=== PATIENT | male | born 1950 | race Caucasian/White ===

== ENCOUNTER 2020-12-26 12:49 | Outpatient (RCR) | payer MEDICARE, SELFPAY ==
[2020-12-01 10:23] VITALS: BMI 40.4
[2020-12-26] MEDS: COVID-19 VACC, MRNA(PFIZER)/PF 30 MCG/0.3 ML SYRINGE IM (12:56)
[2021-01-16] MEDS: COVID-19 VACC, MRNA(PFIZER)/PF 30 MCG/0.3 ML SYRINGE IM (12:46)
== END 2021-03-27 23:59 ==
LOC: IMMUN 12:49
PROVIDERS: PCP Family Medicine; Referring Provider Family Medicine; Visit Provider Family Medicine
DX: Z23 Encounter for immunization (principal)
CPT/HCPCS: 0001A; 0002A; 91300

== ENCOUNTER → 2022-05-02 | Outpatient (CLI) | payer MEDICARE, SELFPAY ==
--- NOTE | 2022-05-02 14:50 | RAD_ITS ---
STUDY: X-RAY CHEST REASON FOR EXAM: Male, 72 years old. shortness of breath TECHNIQUE: PA and lateral. COMPARISON: None. FINDINGS: LUNGS: Suboptimal due to respiratory motion especially in the lung bases. No consolidation. No pneumothorax. MEDIASTINUM: Unremarkable. CARDIAC SILHOUETTE: Not enlarged. BONES AND SOFT TISSUES: No acute abnormalities. Surgical hardware in the lumbar spine partially included. RAD/Chest PA and Lateral IMPRESSION: No definite evidence of active intrathoracic disease. Electronically Signed: Reina Madden MD at 3:32 EDT ,
== END | disposition home or self-care (01) ==
LOC: RAD 14:29
PROVIDERS: PCP Family Medicine; Referring Provider Internal Medicine Cardiovascular Disease; Visit Provider Internal Medicine Cardiovascular Disease
DX: R07.9 Chest pain, unspecified (principal); I73.9 Peripheral vascular disease, unspecified; I65.29 Occlusion and stenosis of unspecified carotid artery; E78.2 Mixed hyperlipidemia; Z95.5 Presence of coronary angioplasty implant and graft; I10 Essential (primary) hypertension; I25.10 Atherosclerotic heart disease of native coronary artery without angina pectoris
CPT/HCPCS: 71046

== ENCOUNTER → 2022-05-27 | Outpatient (CLI) | payer MEDICARE, SELFPAY ==
--- NOTE | 2022-05-27 07:12 | ECHOCS_ITS ---
Reason For Study: Dyspnea/SOB Procedure This was a 2D Doppler, Color Flow transthoracic echocardiogram. The study was technically difficult. Contrast injection was performed. Exam performed in department. Left Ventricle Normal LV size. Left ventricular systolic function is normal. The estimated ejection fraction is 70 %. Diastolic function is indeterminate. No regional wall motion abnormalities noted. Right Ventricle Normal RV size. Normal systolic function. Atria The left atrium is mildly enlarged. Normal right atrium. No doppler evidence for ASD. Mitral Valve There is no mitral annular calcification. Normal mitral valve. Mild (1+) mitral valve insufficiency. Tricuspid Valve Normal tricuspid valve. Aortic Valve Trisinus/trileaflet aortic valve. Normal aortic valve. Pulmonic Valve The pulmonic valve is not well visualized. Great Vessels Normal sized aortic root. Pericardium/Pleural No pericardial effusion. Medication Diluted definity 2ml given slow IV push to enhance endocardial definition. MMode/2D Measurements & Calculations LVIDd: 5.0 cm IVSd: 1.2 cm Ao root diam: 3.0 cm LVIDs: 3.0 cm LVPWd: 1.2 cm RVDd: 2.9 cm FS: 39.7 % LAV(MOD-bp): 59.2 ml LVAd ap4: 31.0 cm2 SV(MOD-sp4): 64.6 ml LAV(MOD-bp) Indexed: 24.1 ml/m2 LVLd ap4: 8.4 cm LAV(MOD-sp2): 48.0 ml EDV(MOD-sp4): 92.8 ml LAV(MOD-sp4): 61.3 ml EDV(sp4-el): 96.7 ml LVAs ap4: 15.8 cm2 LVLs ap4: 7.4 cm ESV(MOD-sp4): 28.2 ml ESV(sp4-el): 28.4 ml EF(MOD-sp4): 69.6 % EF(sp4-el): 70.6 % SV(sp4-el): 68.3 ml LA A4 area: 21.9 cm2 LA dimension(2D): 4.2 cm RA A4 area: 11.6 cm2 Doppler Measurements & Calculations MV E max arthur: 90.7 cm/sec Lat Peak E' Arthur: 5.6 cm/sec Med Peak E' Arthur: 4.8 cm/sec MV A max arthur: 99.8 cm/sec E/E' lat: 16.1 E/E' med: 18.9 MV E/A: 0.91 Ao V2 max: 124.7 cm/sec LV V1 max: 96.0 cm/sec PA V2 max: 87.2 cm/sec Ao max P.2 mmHg LV V1 max P.7 mmHg Ao V2 mean: 87.2 cm/sec Ao mean P.4 mmHg Ao V2 VTI: 29.5 cm ECHO/Echo Complete W/ Contrast Interpretation Summary The study was technically difficult. Contrast injection was performed. Left ventricular systolic function is normal. The estimated ejection fraction is 70 %. The left atrium is mildly enlarged. Mild (1+) mitral valve insufficiency. Diastolic function is indeterminate. Ordering Physician: Pedro Vera Referring Physician: Chantal Collins Performed By: Bonita Lieberman, ADITHYA, RVT
--- NOTE | 2022-05-27 17:40 | STRESSREP ---
Stress Test Report Date: 05-27-2022 Procedure: Pharmacologic stress nuclear imaging study Indications: Shortness of breath/dyspnea on exertion; CAD; PCI Consent: Per the patient Procedure: The patient underwent pharmacologic (Regadenoson 0.4mg ) evaluation with a peak heart rate of 73 beats per minute (49%predicted maximal heart rate) and a peak blood pressure of 162/70 mmHg. The baseline ECG demonstrated sinus rhythm; right bundle branch block. The peak pharmacologic ECG demonstrated no obvious ECG changes. There was an isolated PVC during infusion. There was no complaint of chest discomfort during pharmacologic infusion or recovery. The examination was discontinued secondary to completion of protocol. Impression: 1. Pharmacologic (Regadenoson) evaluation 2. Peak pharmacologic ECG with with no obvious ECG change. 3. There was an isolated PVC during infusion. 4. Nuclear images pending Myocardial perfusion imaging study: Technique: The patient was injected with 14.9 millicuries of technetium 99m Cardiolite and subsequently rest SPECT Cardiolite nuclear imaging was obtained in the horizontal long, vertical long, and short axis views. The patient underwent pharmacologic (Regadenoson) evaluation with a peak heart rate of 73 beats per minute (49% percent predicted maximal heart rate) and a peak blood pressure of 162/70 mmHg. The patient was injected with 44.9 millicuries of technetium 99m Cardiolite and subsequently stress SPECT Cardiolite nuclear imaging was obtained in the horizontal long, vertical long, and short axis views. A gated Cardiolite study at peak stress was obtained. Interpretation: Rest and stress SPECT Cardiolite nuclear imaging status post realignment, normalization, and attenuation correction demonstrate the appearance at rest of relative uniform tracer uptake and myocardial perfusion appearing within normal limits. Status post stress there is the appearance of an area of diminished myocardial perfusion/tracer uptake near the distal anterior/anteroapical segments. There is end systolic thickening and brightening. The gated Cardiolite study demonstrates myocardial thickening and inward wall motion. The reported LVEF is 65%. Impression: 1. Rest and stress SPECT her nuclear imaging demonstrate myocardial perfusion changes at concerning for an area of stress-induced myocardial ischemia in portions of the distal anterior/anteroapical segments. 2. The gated Cardiolite study reports an LVEF of 65%. This note was generated with [employer] software. It may contain incorrect words, spelling, and punctuation that were not noted in checking the note before signing.
== END | disposition home or self-care (01) ==
LOC: CVS 07:10
PROVIDERS: PCP Family Medicine; Referring Provider Internal Medicine Cardiovascular Disease; Visit Provider Internal Medicine Cardiovascular Disease
DX: R07.9 Chest pain, unspecified (principal); I73.9 Peripheral vascular disease, unspecified; Z95.5 Presence of coronary angioplasty implant and graft; I65.29 Occlusion and stenosis of unspecified carotid artery; E78.2 Mixed hyperlipidemia; I10 Essential (primary) hypertension; I25.10 Atherosclerotic heart disease of native coronary artery without angina pectoris
CPT/HCPCS: 78452; 93017; 93306; A9500; Q9957; A4216; C8929; J2785

== ENCOUNTER → 2022-06-05 | Outpatient (CLI) | payer MEDICARE, SELFPAY ==
--- NOTE | 2022-06-05 12:44 | CDU_ITS ---
Reason For Study: Carotid Artery Stenosis Rt. Velocities/BP Lt. Velocities/BP Prox CCA 40/8 cm/sec. Prox CCA 67/16 cm/sec. Mid CCA 38/7 cm/sec. Mid CCA 66/12 cm/sec. Dist CCA 24/5 cm/sec. Dist CCA 114/17 cm/sec. Prox ICA 151/26 cm/sec. Prox ICA 214/38 cm/sec. Mid ICA 111/18 cm/sec. Mid ICA 158/21 cm/sec. Dist ICA 73/16 cm/sec. Dist ICA 89/18 cm/sec. Rt. ICA/CCA = 3.97. Lt. ICA/CCA = 3.3. Prox ECA 90/11 cm/sec. Prox ECA 447/48 cm/sec. Rt. Vert. 90/12 cm/sec. Lt. Vert. 49/7 cm/sec. Right Extracranial There is heterogeneous, irregular atherosclerotic plaque noted in the right common carotid artery. There is heterogeneous, irregular atherosclerotic plaque noted in the right internal carotid artery. There is heterogeneous, irregular atherosclerotic plaque noted in the right external carotid artery. Antegrade flow is noted in the right vertebral artery. Left Extracranial There is heterogeneous, irregular atherosclerotic plaque noted in the left common carotid artery. There is heterogeneous, irregular atherosclerotic plaque noted in the left internal carotid artery. There is heterogeneous, irregular atherosclerotic plaque noted in the left external carotid artery. Antegrade flow is noted in the left vertebral artery. Procedure Carotid Duplex 00775. This is a Carotid Duplex examination using B-mode, color flow and specral Doppler. Exam performed in department. VL/Carotid Duplex Ultrasound Interpretation Summary Moderate (50-69%) stenosis right extracranial internal carotid. Moderate (50-69%) stenosis left extracranial internal carotid. Patent and antegrade vertebrals bilaterally. Ordering Physician: Pedro Vera Referring Physician: Chantal Collins Performed By: Bonita Lieberman, ADITHYA, RVT
== END | disposition home or self-care (01) ==
LOC: CVS 12:42
PROVIDERS: PCP Family Medicine; Referring Provider Internal Medicine Cardiovascular Disease; Visit Provider Internal Medicine Cardiovascular Disease
DX: I65.23 Occlusion and stenosis of bilateral carotid arteries (principal); I73.9 Peripheral vascular disease, unspecified; R07.9 Chest pain, unspecified; E78.2 Mixed hyperlipidemia; Z95.5 Presence of coronary angioplasty implant and graft; I10 Essential (primary) hypertension; I25.10 Atherosclerotic heart disease of native coronary artery without angina pectoris
CPT/HCPCS: 93880

== ENCOUNTER 2022-06-18 07:00 | Day surgery (SDC) | payer MEDICARE, SELFPAY ==
[2022-06-11 11:53] LABS: Hematocrit 44.9 % (40-54); Hemoglobin 15.1 g/dL (13.0-16.5); Mean Corp Hgb Conc 33.6 g/dL (32-36); Mean Corpuscular Volume 95.1 fL (80-94); Mean Platelet Vol. 10.9 fl (6.2-12.0); Platelet Count 180 K/mm3 (150-450); RBC Distribution Width CV 13.5 % (11.6-14.6); RBC Distribution Width SD 47.5 fl (35.1-43.9); Red Blood Count 4.72 M/mm3 (4.6-6.2); White Blood Count 8.2 K/mm3 (4.4-11.0)
[2022-06-11 11:58] LABS: International Normalized Ratio 0.9; Prothrombin Time (Protime)PT. 12.2 SECONDS (11.7-14.9)
[2022-06-11 12:53] LABS: Anion Gap 5 (5-15); BUN 25 mg/dL (7-18); BUN/Creat Ratio 15.7 RATIO (10-20); Calcium,Total 9.6 mg/dL (8.5-10.1); Chloride 109 mmol/L (98-107); Creatinine, Serum 1.59 mg/dL (0.70-1.30); EST Glomerular Filtration Rate 46 mL/min (>60); Est Glom Filt Rate - Afr Amer 55 mL/min (>60); Glucose 105 mg/dL (74-106); Potassium 3.9 mmol/L (3.5-5.1); Sodium Level 139 mmol/L (136-145)
--- NOTE | 2022-06-17 07:50 | HP.PCM_ITS ---
History and Physical Date of Admission: 06/18/22 [facility] [address] [place], [place] [address] OFFICE VISIT Date of Service:? 05/02/22 MR#: [id number] Acct: [id number] Name:MEG BRASHER Rep #: [id number] : 1950 Provider: Dr. Pedro Vera MD Age/Sex:? 72/M ?Location: [facility] Status: Signed with Addenda ADDENDUM by Dr. Pedro Vera MD on 05/02/22 at 1419 Addendum Addendum Details:: Addendum: ECG performed in the office: Sinus rhythm Rightward axis Right bundle branch block Possible right ventricular hypertrophy Consider pulmonary disease This note was generated using a voice recognition system and there may be incorrect words, spelling or punctuation that were not noted when reviewing the office note prior to saving. Assessment and Plan Assessment and Plan (1) Atherosclerotic heart disease of [place] coronary artery without angina pectoris: ?Status:?Acute (2) Presence of stent in coronary artery: ?Status:?Acute ?Comment: PCI/LORENA mRCA 02/2006 ;PCI/stent RCA 03/1999 (3) Mixed hyperlipidemia: ?Status:?Acute (4) Essential hypertension: ?Status:?Acute (5) Peripheral artery disease: ?Status:?Acute (6) Carotid artery stenosis: ?Status:?Acute (7) Dyspnea on exertion: ?Status:?Acute ? ? ? Orders: Orders 12 Lead EKG performed by [facility] Today I25.1 0 - Atherosclerotic heart disease of [place] coronary artery without angina pectoris, Z95.5 - Presence of coronary angioplasty implant and graft ? Echo Complete Today E78.2 - Mixed hyperlipidemia, I10 - Essential (primary) hypertension, I25.10 - Atherosclerotic heart disease of [place] coronary artery without angina pectoris, I65.29 - Occlusion and stenosis of unspecified carotid artery, I73.9 - Peripheral vascular disease, unspecified, R06.02 - Shortness of breath, R07.9 - Chest pain, unspecified, Z95.5 - Presence of coronary angioplasty implant and graft ? Nuclear Stress Test - Chemical Today E78.2 - Mixed hyperlipidemia, I10 - Essential (primary) hypertension, I25.10 - Atherosclerotic heart disease of [place] coronary artery without angina pectoris, I65.29 - Occlusion and stenosis of unspecified carotid artery, I73.9 - Peripheral vascular disease, unspecified, R07.9 - Chest pain, unspecified, Z95.5 - Presence of coronary angioplasty implant and graft ? Chest PA and Lateral Today E78.2 - Mixed hyperlipidemia, I10 - Essential (primary) hypertension, I25.10 - Atherosclerotic heart disease of [place] coronary artery without angina pectoris, I65.29 - Occlusion and stenosis of unspecified carotid artery, I73.9 - Peripheral vascular disease, unspecified, R07.9 - Chest pain, unspecified, Z95.5 - Presence of coronary angioplasty implant and graft ? Carotid Duplex Ultrasound Today E78.2 - Mixed hyperlipidemia, I10 - Essential (primary) hypertension, I25.10 - Atherosclerotic heart disease of [place] coronary artery without angina pectoris, I65.23 - Occlusion and stenosis of bilateral carotid arteries, I65.29 - Occlusion and stenosis of unspecified carotid artery, I73.9 - Peripheral vascular disease, unspecified, R07.9 - Chest pain, unspecified, Z95.5 - Presence of coronary angioplasty implant and graft ? 05/02/22 1419 <Electronically signed by Pedro Vera MD> Date Pedro Vera MD cc:? Chantal Collins, ~* Signed [facility] HPI History of Present Illness Details: This is a 72-year-old white male who presents today for outpatient cardiovascular consultation with a history of underlying CAD, PCI, hyperlipidemia, hypertension, PAD/carotid artery disease to establish outpatient cardiovascular care with concerns of shortness of breath/dyspnea on exertion.? He states that when he is up and about, walking with his cane, he can still become short of breath with exertion.? He does not complain of orthopnea or PND. He is not complaining of classic chest pain with angina pectoris.? However his shortness of breath/dyspnea on exertion may be an angina pectoris equivalent.? He has not had palpitations, near-syncope, or syncope.? He does have an element of chronic bilateral lower extremity peripheral pitting edema. It appears he has undergone noninvasive evaluation in the past with pharmacologic stress nuclear imaging study and pharmacologic stress echocardiographic studies.? According to the reports available for review those studies were thought to be negative. His previous cardiac catheterization/PCI reports are unavailable for review. He has been told he has carotid artery disease.? On examination he does have bilateral carotid artery bruits.? No obvious carotid artery duplex study is available for review. He has lower extremity peripheral arterial occlusive disease.? It does appear based upon previous reports that on 11-28-2017 he had a left femoral to above knee popliteal artery bypass with PTFE. He does have obstructive sleep apnea.? He has been evaluated by pulmonology in the past.? He states he believes this led to a diagnosis of COPD.? However he has not had any therapy other than for his obstructive sleep apnea. He states since his last stress test which appears to have been performed in October 2020 at [facility] in the form of a dobutamine stress echocardiogram, which was negative, that he has not had any additional cardiovascular studies performed. He also knows that he is overweight and has been told that he needs to lose w eight.? He states he was told at one time he should be considered for bariatric surgery.? However he has been concerns about the risks based upon his cardiac and peripheral vascular disease process. Intake Vital Signs ? 05/02/2213:01 05/02/2213:08 Height 6 ft 5 ft 10 in Weight: ? 296 lb 3 oz BMI ? 42.5 BP ? 142/68 H Blood Pressure Location ? Lt brachial Position ? Sitting Respiration ? 18 Pulse ? 60 Pulse Source ? Auscultation Intake Visit Reasons:?EST CARE. Technical Planner Required: No Accompanied by: Allergies No Known Allergies Allergy (Unverified 05/02/22 13:08) Medications aspirin 81 mg tablet,delayed release (Lakisha Low Dose Aspirin) 81 mg PO DAILY 11/30/20 [History Confirmed 05/02/22] clopidogrel 75 mg tablet 75 mg PO DAILY 11/30/20 [History Confirmed 05/02/22] allopurinol 100 mg tablet 100 mg PO DAILY 04/16/22 [History Confirmed 05/02/22] chlorthalidone 25 mg tablet 25 mg PO DAILY 04/16/22 [History Confirmed 05/02/22] colchicine 0.6 mg tablet (Colcrys) 0.6 mg PO DAILY 04/16/22 [History Confirmed 05/02/22] duloxetine 60 mg capsule,delayed release 60 mg PO DAILY 04/16/22 [History Confirmed 05/02/22] gabapentin 600 mg tablet 600 mg PO TID 04/16/22 [History Confirmed 05/02/22] insulin lispro 100 unit/mL subcutaneous pen (Humalog KwikPen (U-100) Insulin) 1 sliding scale dose subcut USEASDIRECTD 04/16/22 [History Confirmed 05/02/22] metoprolol tartrate 50 mg tablet (Lopressor) 50 mg PO BID 04/16/22 [History Confirmed 05/02/22] insulin glargine 100 unit/mL (3 mL) subcutaneous pen (Lantus Solostar U-100 Insulin) 60 unit subcut DAILY 05/02/22 [History Confirmed 05/02/22] pravastatin 80 mg tablet 80 mg PO QHS 05/02/22 [History Confirmed 05/02/22] PFSH Medical History? Allergic rhinitis Arthritis Atherosclerotic heart disease of [place] coronary artery without angina pectoris Bilateral carotid artery stenosis CKD (chronic kidney disease) stage 4, GFR 15-29 ml/min Congestive heart failure Diabetes Dyslipidemia Essential hypertension GERD (gastroesophageal reflux disease) Gout Headache Lumbar stenosis Mixed hyperlipidemia Myocardial infarction Neuropathy Old myocardial infarction SHANTANU (obstructive sleep apnea) Panlobular emphysema Peripheral artery disease Peripheral vascular disease Presence of stent in coronary artery (~02/2006) Prostate cancer Restless leg syndrome SOB (shortness of breath) Type 2 diabetes mellitus Surgical History? History of anterior cruciate ligament surgery History of back surgery History of cystoscopy History of prostate surgery Presence of coronary angioplasty implant and graft (~02/2006) S/P femoral-popliteal bypass surgery (~11/28/17) Status post placement of ureteral stent Family History? Mother Diabetes Heart diseaseFather Heart diseaseBrother DiabetesBrother DiabetesSister Heart disease DiabetesOther Cancer Social History? Smoking Status:? Former smoker alcohol intake:? never substance use type:? marijuana caffeine:? Yes Type: coffee ROS Const Const: Positive for fatigue and weakness; Negative for body ache, fever(s), headache(s), chills, frequent falls, night sw eats, daytime sleepiness, difficulty sleeping, excessive sweating, weight gain, weight loss, increased appetite, poor appetite, anorexia or other Eyes Eyes: Negative for blurry vision or double vision ENT ENT: Positive for dizziness (occasional sitting to standing) and balance problems (Numbness Lt LE uses cane for ambulating); Negative for headache(s) Cardio Chest Pain: Yes Character: other (throbbimg) Onset: exercise Location: mid sternal and left chest (radiates LT UE) Duration: brief Palpitations: No Edema: Bilateral (Ankles) Muscle aches with walking: None Resp Respiratory: Positive for SOB with activity (increased) and SOB orthopnea\SOB lying down (Wears CPAP at night); Negative for SOB at rest, Cough, Coughing up blood/hemoptysis, chest congestion, pain on inspiration, snoring, stridor, wheezing, crackles, paroxysmal nocturnal dyspnea or other Musc Musc: Positive for balance problems (Numbness Lt LE uses cane for ambulating); Negative for muscle aches/ myalgia, muscle weakness or joint pain Neuro Neuro: Positive for dizziness (occasional sitting to standing), lightheadedness (occasional sitting to standing) and weakness; Negative for near syncope, syncope, orthostatic symptoms, frequent falls, headache(s), confusion, memory loss, restless legs, blurry vision, double vision, vertigo, seizures, lack of coordination or other Endo Endo: Positive for fatigue; Negative for excessive sweating Cardiology Exam Const Appearance: cooperative, healthy appearing, comfortable, no acute distress, well developed and well groomed Nutritional Appearance: obese Orientation: alert, awake and oriented x3 Head Head: normal to inspection, normocephalic and atraumatic Ears: hearing grossly normal bilaterally Nose: external nose normal Face and Sinus: face symmetric Eyes Eyelids: eyelids normal Conjunctivae: conjunctivae normal Pupils: PERRL EOM: EOM intact bilaterally Neck Neck: normal visual inspection and full ROM Carotids: bruit Bilateral Chest Chest inspection: normal inspection of the chest, symmetric chest movement and normal respiratory effort Auscultation: Bilateral: Clear to Auscultation Cardio Palpation: normal PMI Rate: regular rate Rhythm: regular rhythm Heart sounds: S1 normal and S2 normal GI GI: normal to inspection, soft, bowel sounds present and obese Extremities Pulses: Normal: Right Radial Pulse and Left Radial Pulse Lower Extremity Edema: +1: Bilateral Psych Psychological: normal affect Supplemental Info Supplemental Information Labs: ?? ? No Data to Display Diagnostics: ?? ? Electrocardiogram ? Pulmonary: ?? ? No Data to Display Assessment and Plan Assessment and Plan (1) Atherosclerotic heart disease of [place] coronary artery without angina pectoris: ?Status:?Acute ?Plan: Clued aAt the present time he will continue his current medical therapy. Based upon his symptoms he will undergo further evaluation of his CAD status.? This will include a pharmacologic stress nuclear imaging study. Depending upon the findings this may lead to repeat diagnostic cardiac catheterization. (2) Presence of stent in coronary artery: ?Status:?Acute ?Comment: PCI/LORENA mRCA 02/2006 ;PCI/stent RCA 03/1999 ?Plan: A copy of his previous cardiac catheterization and PCI report will be requested for continuity of care. (3) Mixed hyperlipidemia: ?Status:?Acute ?Plan: He will continue his lipid-lowering therapy. (4) Essential hypertension: ?Status:?Acute ?Plan: He will continue antihypertensive therapy with adjustment as deemed appropriate. (5) Peripheral artery disease: ?Status:?Acute ?Plan: His lower remedy peripheral tear occlusive disease has to be taken into consideration with respect to his ongoing evaluation and care especially if he would require additional invasive studies being performed from a lower extremity approach. (6) Carotid artery stenosis: ?Status:?Acute ?Plan: He will be asked to have a carotid artery duplex study performed to reassess his carotid artery disease process. (7) Dyspnea on exertion: ?Status:?Acute ?Plan: He will undergo further cardiac evaluation for his dyspnea on exertion. This will include a transthoracic echocardiogram to assess his left ventricular wall motion and systolic function. It will also include the pharmacologic stress nuclear imaging study to assess for ongoing myocardial ischemia that warrants further evaluation in the cardiac catheterization laboratory. He will also have a chest x-ray performed. He may need follow-up with pulmonology to reassess his pulmonary function as well based upon his symptoms. As he is already noted, he has been previously counseled on the need to try and ring his weight under better control which could also assist with his underlying symptoms. ? ? ? Orders: Orders 12 Lead EKG performed by [facility] Today I25.1 0 - Atherosclerotic heart disease of [place] coronary artery without angina pectoris, Z95.5 - Presence of coronary angioplasty implant and graft ? Echo Complete Today E78.2 - Mixed hyperlipidemia, I10 - Essential (primary) hypertension, I25.10 - Atherosclerotic heart disease of [place] coronary artery without angina pectoris, I65.29 - Occlusion and stenosis of unspecified carotid artery, I73.9 - Peripheral vascular disease, unspecified, R06.02 - Shortness of breath, R07.9 - Chest pain, unspecified, Z95.5 - Presence of coronary angioplasty implant and graft ? Nuclear Stress Test - Chemical Today E78.2 - Mixed hyperlipidemia, I10 - Essential (primary) hypertension, I25.10 - Atherosclerotic heart disease of [place] coronary artery without angina pectoris, I65.29 - Occlusion and stenosis of unspecified carotid artery, I73.9 - Peripheral vascular disease, unspecified, R07.9 - Chest pain, unspecified, Z95.5 - Presence of coronary angioplasty implant and graft ? Chest PA and Lateral Today E78.2 - Mixed hyperlipidemia, I10 - Essential (primary) hypertension, I25.10 - Atherosclerotic heart disease of [place] coronary artery without angina pectoris, I65.29 - Occlusion and stenosis of unspecified carotid artery, I73.9 - Peripheral vascular disease, unspecified, R07.9 - Chest pain, unspecified, Z95.5 - Presence of coronary angioplasty implant and graft ? Carotid Duplex Ultrasound Today E78.2 - Mixed hyperlipidemia, I10 - Essential (p rimary) hypertension, I25.10 - Atherosclerotic heart disease of [place] coronary artery without angina pectoris, I65.23 - Occlusion and stenosis of bilateral carotid arteries, I65.29 - Occlusion and stenosis of unspecified carotid artery, I73.9 - Peripheral vascular disease, unspecified, R07.9 - Chest pain, unspecified, Z95.5 - Presence of coronary angioplasty implant and graft ? Plan Details Additional Comments: The above was discussed with the patient with his spouse present.? He was agreeable to this approach. Thank you for allowing me to participate in the care of your patient.? Please don't hesitate to call if any issues arise. This note was generated using a voice recognition system and there may be incorrect words, spelling or punctuation that were not noted when reviewing the office note prior to saving. Follow Up: ? ? 3 Months (PFM ) ? ? 05/02/22 ([facility]) COVID (Procedure Consent) Procedure Criteria Procedure Criteria: Yes Elective The surgeon/proceduralist and patient have discussed in detail the risk of exposure to and/or potential harm posed by the COVID-19 virus with having a surgery/procedure at this time versus the risk of? delaying the surgery/procedure. It is not possible to know either the risk of delaying the surgery or procedure or chance of getting an infection with perfect accuracy, but a joint decision was made between the patient and the surgeon/proceduralist ?to proceed at this time with the scheduled surgery/procedure as indicated on the consent form. Coding Level of Care Code Off vis,new,level 5 Diagnoses Atherosclerotic heart disease of [place] coronary artery without angina pectoris? I25.10 Presence of stent in coronary artery? Z95.5 Mixed hyperlipidemia? E78.2 Essential hypertension? I10 Peripheral artery disease? I73.9 Carotid artery stenosis? I65.29 Dyspnea on exertion? R06.09 Coding Level of Care Code Off vis,new,level 5 Diagnoses Atherosclerotic heart disease of [place] coronary artery without angina pectoris? I25.10 Presence of stent in coronary artery? Z95.5 Mixed hyperlipidemia? E78.2 Essential hypertension? I10 Peripheral artery disease? I73.9 Carotid artery stenosis? I65.29 Dyspnea on exertion? R06.09 05/02/22 1415 <Electronically signed by Pedro Vera MD> Date Pedro Vera MD Cosigner Signature: Date (if applicable) CC:? Chantal M Esterle, DO ~ Assessment & Plan Addt'l Comments Addendum: I have examined the patient the following changes are noted: The patient has undergone further evaluation with a transthoracic echocardiogram on 05-27-2022. The results are noted below. Interpretation Summary The study was technically difficult. Contrast injection was performed. ? Left ventricular systolic function is normal. The estimated ejection fraction is 70 %. The left atrium is mildly enlarged. Mild (1+) mitral valve insufficiency. Diastolic function is indeterminate. The patient has undergone further evaluation with a pharmacologic stress nuclear imaging study on 05-27-2022. The results are noted below. Stress Test Report Date: 05-27-2022 Procedure: Pharmacologic stress nuclear imaging study? Indications: Shortness of breath/dyspnea on exertion; CAD; PCI Consent: Per the patient Procedure: The patient underwent pharmacologic (Regadenoson 0.4mg ) evaluation with a peak heart rate of 73 beats per minute (49%predicted maximal heart rate) and a peak blood pressure of 162/70 mmHg. The baseline ECG demonstrated sinus rhythm; right bundle branch block.? The peak pharmacologic ECG demonstrated no obvious ECG changes. There was an isolated PVC during infusion. There was no complaint of chest discomfort during pharmacologic infusion or recovery. The examination was discontinued secondary to completion of protocol. Impression: 1.? Pharmacologic (Regadenoson) evaluation 2.? Peak pharmacologic ECG with with no obvious ECG change. 3.? There was an isolated PVC during infusion. 4.? Nuclear images pending Myocardial perfusion imaging study: Technique: The patient was injected with 14.9 millicuries of technetium 99m Cardiolite and subsequently rest SPECT Cardiolite nuclear imaging was obtained in the horizontal long, vertical long, and short axis views. The patient underwent pharmacologic (Regadenoson) evaluation with a peak heart rate of 73 beats per minute (49% percent predicted maximal heart rate) and a peak blood pressure of 162/70 mmHg. The patient was injected with 44.9 millicuries of technetium 99m Cardiolite and subsequently stress SPECT Cardiolite nuclear imaging was obtained in the horizontal long, vertical long, and short axis views.? A gated Cardiolite study at peak stress was obtained. Interpretation: Rest and stress SPECT Cardiolite nuclear imaging status post realignment, normalization, and attenuation correction demonstrate the appearance at rest of relative uniform tracer uptake and myocardial perfusion appearing within normal limits.? Status post stress there is the appearance of an area of diminished myocardial perfusion/tracer uptake near the distal anterior/anteroapical segments.? There is end systolic thickening and brightening.? The gated Cardiolite study demonstrates myocardial thickening and inward wall motion.? The reported LVEF is 65%. Impression: 1.? Rest and stress SPECT her nuclear imaging demonstrate myocardial perfusion changes at concerning for an area of stress-induced myocardial ischemia in portions of the distal anterior/anteroapical segments. 2.? The gated Cardiolite study reports an LVEF of 65%. Based upon the aforementioned concerns the patient was recommended for further evaluation with diagnostic cardiac catheterization. The procedure and risk were discussed with the patient. He was agreeable to this approach. This note was generated using a voice recognition system and there may be incorrect words, spelling or punctuation that were not noted when reviewing the office note prior to saving. ?
[2022-06-17 08:20] VITALS: BMI 42.5
--- NOTE | 2022-06-18 11:05 | CL.D_ITS ---
Patient Name: MEG SEYMOUR Study Date: 06/18/2022 Performing: Pedro Vera MD Ht: 70 inches 177.8 cm : 1950 Wt: 295.99 lbs 134.26 kg Age: 72 Gender: male BSA: 2.47 PROCEDURE(S) PERFORMED DC01-(84033)LHC/COR/LV CLINICAL PROFILE AND INDICATIONS Indications: Worsening Angina, Suspected CAD Heart Failure: None Stress/Imaging Date: 05/27/2022tress Test with SPECT MPI: Positive Intermediate Risk Angina Classification Anginal Classification w/in 2 Weeks: Anginal Equivalent Dyspnea CAD Presentations: Other: dyspnea on exertion CONCLUSIONS Elevated Left Ventricular End Diastolic Pressure [place] Multivessel CAD RCA: stents: patent RECOMMENDATIONS Risk factor modification Medical therapy Staged percutaneous intervention with rotational atherectomy to the IR system Case discussed / reviewed with Dr. Martínez of Interventional Cardiology DESCRIPTION OF PROCEDURE The patient arrived to the procedure lab. The risks and benefits of the procedure as well as a full description of our services here and current unavailability of surgical backup were fully explained to the patient and/or their significant other prior to the catheterization. The Timeout was completed, verifying the correct patient and procedure. The patient's procedural site was prepped and draped in the usual fashion. Local anesthetic was given subcutaneously to right groin region with Lidocaine 2%. Using a modified Seldinger technique, arterial access was obtained via the right femoral artery, a 4Fr sheath was inserted Left Coronary Artery selective angiography was performed in multiple views using a 4 Fr. JL5 catheter. Right Coronary Artery selective angiography was then performed in multiple views using a 4 Fr. 3DRC catheter. LV to AO pullback pressures were then recorded.The arterial sheath was pulled and manual compression applied until hemostasis is achieved. CORONARY ANGIOGRAPHY DOMINANCE: Right Dominant LEFT HEART ASSESSMENT Left Ventricular Ejection Fraction: Not assessed Elevated Left Ventricular End Diastolic Pressure LVEDP: 23 mmHg LEFT MAIN: Mild calcification LEFT ANTERIOR DESCENDING ARTERY: Mild luminal irregularities PROX LAD: Moderate calcification DISTAL LAD: angiographic findings potentially c/w an LAD intramyocardial bridging segment CIRCUMFLEX ARTERY: Mild luminal irregularities RAMUS: proximal: mild to moderate eccentric calcification with 75 % Stenosis RIGHT CORONARY ARTERY: PROX RCA: Previously placed stent is patent MID RCA: Previously placed stent is patent DISTAL RCA: is occluded COMPLICATIONS No Complications PROCEDURE MEDICATIONS Fentanyl 50 mcg IV Versed 1 mg IV Fentanyl 50 mcg IV Oxygen: 2 L/min via nasal cannula IV Bolus: .9 NaCl 500 ml total 06/18/2022 10:04:42 SUMMARY OF HEMODYNAMIC DATA Time AIR REST ECG 07:28:57 Art 126/47 (73) 10:01:49 AO 134/49 (82) SA 10:05:54 LV 145/-9, 17 10:19:20 LV 154/-8, 23 10:19:29 LVp 147/-7, 14 10:19:36 AO 147/45 (86) 10:19:43 AOp 147/46 (87) 10:19:43 10:56:33 Signed By Pedro Vera MD On 06/18/2022 11:04:58 Pedro Vera MD
== END 2022-06-18 15:09 | disposition home or self-care (01) ==
LOC: CLSP 07:03
PROVIDERS: PCP Family Medicine; Referring Provider Internal Medicine Cardiovascular Disease; Visit Provider Internal Medicine Cardiovascular Disease
DX: I25.10 Atherosclerotic heart disease of native coronary artery without angina pectoris (principal); E11.51 Type 2 diabetes mellitus with diabetic peripheral angiopathy without gangrene; E11.40 Type 2 diabetes mellitus with diabetic neuropathy, unspecified; E11.22 Type 2 diabetes mellitus with diabetic chronic kidney disease; N18.4 Chronic kidney disease, stage 4 (severe); Z79.4 Long term (current) use of insulin; E78.2 Mixed hyperlipidemia; I12.9 Hypertensive chronic kidney disease with stage 1 through stage 4 chronic kidney disease, or unspecified chronic kidney disease; Z95.5 Presence of coronary angioplasty implant and graft; I65.23 Occlusion and stenosis of bilateral carotid arteries; I25.2 Old myocardial infarction; G47.33 Obstructive sleep apnea (adult) (pediatric); G25.81 Restless legs syndrome; Z85.46 Personal history of malignant neoplasm of prostate; M10.9 Gout, unspecified; K21.9 Gastro-esophageal reflux disease without esophagitis; Z79.82 Long term (current) use of aspirin; Z79.899 Other long term (current) drug therapy; Z95.1 Presence of aortocoronary bypass graft; Z87.891 Personal history of nicotine dependence
CPT/HCPCS: 36415; 80048; 85027; 85610; 85730; 93458; 99152; 99153; J7040; C1769; C1894; Q9967

== ENCOUNTER → 2023-02-18 | Outpatient (CLI) | payer MEDICARE, SELFPAY ==
[2023-02-18 16:06] LABS: Creatinine, Serum 1.95 mg/dL (0.70-1.30); EST Glomerular Filtration Rate 36 mL/min (>60); Est Glom Filt Rate - Afr Amer 44 mL/min (>60)
== END | disposition home or self-care (01) ==
LOC: LAB 14:10
PROVIDERS: PCP Family Medicine; Referring Provider Physician Assistant; Visit Provider Physician Assistant
DX: I65.29 Occlusion and stenosis of unspecified carotid artery (principal)
CPT/HCPCS: 36415; 82565

== ENCOUNTER → 2023-03-10 | Outpatient (CLI) | payer MEDICARE, SELFPAY ==
--- NOTE | 2023-03-10 13:30 | CT_ITS ---
HISTORY: bilateral carotid artery stenosis. TECHNIQUE: Noncontrast axial images were obtained of the brain. Subsequently, routine carotid and [place] of [place] CT angiogram protocol was performed after the intravenous administration of 100 mL Isovue-370. NASCET criteria using the distal ICAs for comparison were used for evaluation of stenoses. 3D reconstructions were reviewed. A radiation dose optimization technique was used for this scan .2234 images. COMPARISON: [facility] 06/05/2022. FINDINGS: --CT BRAIN: BRAIN PARENCHYMA: Chronic small vessel ischemic gliosis noted. No acute intra-axial hemorrhage. CSF SPACES: Mild generalized volume loss. No midline shift or other mass effect.No acute extra-axial hemorrhage seen. OTHER: Intact skull.Moderate frontal ethmoid and sphenoid sinus fluid and mucosal thickening. Mild maxillary sinus coastal thickening. Bilateral lens resections. --CTA NECK: AORTIC ARCH AND BRANCHES: Mild atelectasis versus with a bovine arch configuration. Left vertebral artery originates directly off the arch. RIGHT CCA: 50-60% stenosis at the bifurcation. No occlusion. RIGHT ICA: 60-70% stenosis at the origin. Calcified plaque mid to distally. LEFT CCA: Mild 30% stenosis mid. Approximately 50% stenosis at the bifurcation. LEFT ICA: 50% stenosis extends into the origin. No occlusion. Mild calcified plaque distally. RIGHT VERTEBRAL ARTERY: No occlusion, significant stenosis or dissection. LEFT VERTEBRAL ARTERY: Dominant and patent. --CTA HEAD: ICAs: Severely 70% stenosis in the right proximal petrous portion. Moderate calcified plaque in the left petrous and bilateral cavernous portions. No occlusion. ACAs: No significant stenosis at the visualized segments. Anaplastic right A1 segment. MCAs: No significant stenosis at the visualized segments. service agent: No significant stenosis at the visualized segments. Right origin. BASILAR ARTERY: No significant stenosis. VERTEBRAL ARTERIES: Dominant left vertebral artery with calcified plaque resulting in approximately 70% stenosis. Hypoplastic right vertebral artery with mild calcified plaque. No evidence of intracranial aneurysm or vascular malformation. CT/CTA Head AND Neck W/ Contrast IMPRESSION: No acute intracranial process identified. Mild chronic involutional and white matter changes. Frontal ethmoid and sphenoid sinusitis. Moderate stenosis of the right common carotid bifurcation with moderate-severe stenosis extending into the origin of the internal carotid artery. Moderate stenosis of the left common carotid bifurcation extending into the origin of the left internal carotid artery. Severe stenosis of the proximal petrous right internal carotid artery. Severe calcified plaque in the intracranial left vertebral artery. No large vessel occlusion. Electronically Signed: Jessica Mcadams MD at 15:16 EDT ,
== END | disposition home or self-care (01) ==
LOC: CT 13:02
PROVIDERS: PCP Family Medicine; Referring Provider Physician Assistant; Visit Provider Physician Assistant
DX: I65.23 Occlusion and stenosis of bilateral carotid arteries (principal)
CPT/HCPCS: 70496; 70498; Q9967

== ENCOUNTER → 2023-09-23 | Outpatient (CLI) | payer MEDICARE, SELFPAY ==
--- NOTE | 2023-09-23 13:56 | CDU_ITS ---
Reason For Study: Carotid stenosis Rt. Velocities/BP Lt. Velocities/BP Prox CCA 51.3/9.7 cm/sec. Prox CCA 61.3/11.6 cm/sec. Mid CCA 33.4/6.4 cm/sec. Mid CCA 70/15.1 cm/sec. Dist CCA 26.4/7.2 cm/sec. Dist CCA 65.7/13.3 cm/sec. Prox ICA 160.9/27 cm/sec. Prox ICA 228.9/48.3 cm/sec. Mid ICA 141.2/22.5 cm/sec. Mid ICA 120.6/26.8 cm/sec. Dist ICA 46.5/12.4 cm/sec. Dist ICA 90/17 cm/sec. Rt. ICA/CCA = 4.82. Lt. ICA/CCA = 3.48. Prox ECA 101/11.5 cm/sec. Prox ECA 455.2/47.4 cm/sec. Rt. Vert. 88.3/6.9 cm/sec. Lt. Vert. 48.2/7.2 cm/sec. Right Extracranial There is heterogeneous, irregular atherosclerotic plaque noted in the right common carotid artery. There is heterogeneous, irregular atherosclerotic plaque noted in the right internal carotid artery. There is heterogeneous, irregular atherosclerotic plaque noted in the right external carotid artery. Antegrade flow is noted in the right vertebral artery. Left Extracranial There is heterogeneous, irregular atherosclerotic plaque noted in the left common carotid artery. There is heterogeneous, irregular atherosclerotic plaque noted in the left internal carotid artery. There is heterogeneous, irregular atherosclerotic plaque noted in the left external carotid artery. Antegrade flow is noted in the left vertebral artery. Procedure This is a Carotid Duplex examination using B-mode, color flow and specral Doppler. Carotid Duplex 49215. Exam performed in department. VL/Carotid Duplex Ultrasound Interpretation Summary Moderate (50-69%) stenosis right extracranial internal carotid. Moderate (50-69%) stenosis left extracranial internal carotid. Patent and antegrade vertebrals bilaterally. Ordering Physician: Asa Gibbons Referring Physician: Chantal Collins Performed By: Gaby Santos T
== END | disposition home or self-care (01) ==
LOC: CVS 13:56
PROVIDERS: PCP Family Medicine; Referring Provider Surgery Trauma Surgery; Visit Provider Surgery Trauma Surgery
DX: I65.23 Occlusion and stenosis of bilateral carotid arteries (principal)
CPT/HCPCS: 93880